=== PATIENT | male | born 1995 | race Two or more races ===

== ENCOUNTER 2024-07-19 15:41 | Emergency (ER) | payer OTHER ==
[~2024-07-19] VITALS: Ht 170.2 cm; Wt 71.7 kg
[2024-07-19] MEDS ORDERED: DEXAMETHASONE SODIUM PHOSPHATE 4 MG/ML VIAL IM ONE (17:15)
[2024-07-19] MEDS ORDERED: KETOROLAC TROMETHAMINE 60 MG VIAL IM ONE ×2 (17:15→17:19)
[2024-07-19] MEDS ORDERED: ORPHENADRINE CITRATE 30 MG/ML AMPUL IM ONE (17:15)
[2024-07-19] MEDS ORDERED: ORPHENADRINE CITRATE 30 MG/ML AMPUL ONE (17:19)
[2024-07-19] MEDS ORDERED: DEXAMETHASONE SODIUM PHOSPHATE 4 MG/ML VIAL ONE (17:19)
[2024-07-19] MEDS ORDERED: DICLOFENAC SODI75 MG PO (20:12)
[2024-07-19] MEDS ORDERED: BACLOFEN10 MG PO (20:12)
== END 2024-07-19 20:51 | disposition home or self-care (01) ==
LOC: ER 15:43
DX: M54.50 Low back pain, unspecified (principal)
CPT/HCPCS: 72040; 72100; 73030; 96372; 99283; J1100; J1885; J2360

== ENCOUNTER 2024-07-29 08:48 | Emergency (ER) | payer OTHER ==
[~2024-07-29] VITALS: Ht 170.2 cm; Wt 72.6 kg
[~2024-07-29 08:48] MED LIST: BACLOFEN10 MG PO; DICLOFENAC SODI75 MG PO
[2024-07-29] MEDS ORDERED: REMERON15 M1 (09:17)
[2024-07-29] MEDS ORDERED: ORPHENADRINE CITRATE 30 MG/ML AMPUL IM ONE (11:45)
[2024-07-29] MEDS ORDERED: KETOROLAC TROMETHAMINE 60 MG VIAL IM ONE (11:45)
[2024-07-29] MEDS ORDERED: DEXAMETHASONE SODIUM PHOSPHATE 4 MG/ML VIAL IM ONE (11:45)
== END 2024-07-29 13:11 | disposition home or self-care (01) ==
LOC: ER 08:51
DX: S39.012A Strain of muscle, fascia and tendon of lower back, initial encounter (principal); X58.XXXA Exposure to other specified factors, initial encounter; Y93.79 Activity, other specified sports and athletics; Y92.69 Other specified industrial and construction area as the place of occurrence of the external cause; Y99.8 Other external cause status
CPT/HCPCS: 96372; 99282; J1100; J1885; J2360